=== PATIENT | female | born 1945 | race African-American/Black ===

== ENCOUNTER 2017-01-13 10:28 | Emergency (ER) | payer MEDICARE ==
[~2017-01-13] VITALS: Ht 170.2 cm; Wt 94.6 kg
[2017-01-13] MEDS ORDERED: SODIUM CHLORIDE 0.9% 100 ML ONE (10:34)
[2017-01-13] MEDS ORDERED: IOVERSOL 350 MG/ML 100 ML VIAL ONE (10:34)
[2017-01-13] MEDS ORDERED: AMLO-511 PO (10:38)
[2017-01-13] MEDS ORDERED: ATOR20TA86 PO (10:38)
[2017-01-13] MEDS ORDERED: ALBU8.5H8 IH (10:38)
[2017-01-13] MEDS ORDERED: ASPI81 PO (10:38)
[2017-01-13] MEDS ORDERED: FLUT16H NASAL (10:38)
[2017-01-13] MEDS ORDERED: CETI-290 PO (10:38)
[2017-01-13 10:48] LABS: BASOPHILS % (AUTO) 0.8 % (0.0-2.0); EOSINOPHILS % (AUTO) 4.6 % (1.0-6.0); HEMATOCRIT 40.3 % (36-46); HEMOGLOBIN 13.9 g/dL (12.0-16.0); LYMPHOCYTES % (AUTO) 25.6 % (22.0-44.0); MEAN CORPUSCULAR HEMOGLOBIN 31.7 pg (26.0-34.0); MEAN CORPUSCULAR HGB CONC 34.5 G/dL (31.0-37.0); MEAN CORPUSCULAR VOLUME 92 fL (80-100); MONOCYTES # (AUTO) 0.4 K/uL (0.1-1.0); MONOCYTES % (AUTO) 10.8 % (2.0-9.0); NEUTROPHILS # (AUTO) 2.4 K/uL (1.8-7.7); NEUTROPHILS % (AUTO) 58.2 % (40.0-70.0); PLATELET COUNT (AUTO) 231 K/uL (150-450); RED BLOOD CELL COUNT(AUTO) 4.38 MIL/uL (4.00-5.20); RED CELL DISTRIBUTION WIDTH 13.7 % (11.5-14.5); WHITE BLOOD COUNT (AUTO) 4.1 K/uL (4.5-11.0)
[2017-01-13 10:56] LABS: ANION GAP 8 mmol/L (8-16); CALCIUM, TOTAL 8.5 mg/dL (8.8-10.5); CARBON DIOXIDE 26 mmol/L (22-29); CHLORIDE 108 mmol/L (98-107); CREATININE 0.63 mg/dL (0.60-1.30); GLOMERULAR FILTR. RATE CALC > 60 mL/min (>60); POTASSIUM 3.6 mmol/L (3.5-5.1); SODIUM SERUM 142 mmol/L (136-145); UREA NITROGEN, BLOOD 9 mg/dL (7-18)
[2017-01-13 10:59] LABS: PROTHROMBIN TIME 10.4 SEC (9.4-11.6)
[2017-01-13] MEDS ORDERED: ALTEPLASE IV ONE ×2 (11:00)
[2017-01-13] MEDS ORDERED: WATER FOR INJECTION STERILE IV ONE ×2 (11:00)
[2017-01-13 11:21] LABS: ALANINE AMINOTRANSFERASE 21 U/L (12-78); ALBUMIN 3.7 g/dL (3.4-5.0); ASPARTATE AMINOTRANSFERASE 20 U/L (15-37); BILIRUBIN,TOTAL 0.5 mg/dL (0.1-1.0); CREATINE KINASE MB 1.8 ng/mL (0-5); CREATINE KINASE, TOTAL 113 U/L (26-192); TOTAL PROTEIN, SERUM 6.7 g/dL (6.4-8.2)
[2017-01-13 11:28] LABS: APPEARANCE,URINE CLEAR (CLEAR); GLUCOSE, URINE (UA) NEGATIVE (NEGATIVE); KETONES,URINE NEGATIVE (NEGATIVE); LEUKOCYTE ESTERASE ,URINE NEGATIVE (NEGATIVE); OCCULT BLOOD,URINE NEGATIVE (NEGATIVE); PROTEIN,URINE NEGATIVE (NEGATIVE)
[2017-01-13 11:29] LABS: ADD UA MICROSCOPIC NO
[2017-01-13] MEDS ORDERED: HydrALAZINE HCL 20 MG/ML VIAL ONE (11:54)
[2017-01-13 12:10] VITALS: BP 102/76
[2017-01-13] MEDS ORDERED: HydrALAZINE HCL 20 MG/ML VIAL IVP ONE (12:45)
== END 2017-01-13 12:49 | disposition short-term general hospital (02) ==
LOC: EMS 10:29
DX: I63.9 Cerebral infarction, unspecified (principal); G81.91 Hemiplegia, unspecified affecting right dominant side; J44.9 Chronic obstructive pulmonary disease, unspecified; F17.200 Nicotine dependence, unspecified, uncomplicated; Z79.82 Long term (current) use of aspirin
CPT/HCPCS: 36415; 37195; 70450; 70496; 71010; 80053; 81003; 82550; 82553; 82962; 84484; 85025; 85610; 85730; 93005; 96374; 99291; J0360; J2997; J7050; Q9967